=== PATIENT | male | born 1950 | race Caucasian/White ===

== ENCOUNTER 2019-03-07 20:11 | Emergency (ER) | payer OTHER ==
--- NOTE | 2019-03-07 20:58 | ER ---
Nurse's Notes [facility] Name: Santos Storm Age: 68 yrs Sex: Male : 1950 Arrival Date: 03/07/2019 Time: 20:16 Bed 26 Private MD: Elliot Recinos Diagnosis: Laceration without foreign body of right hand-thumb Presentation: 03/07 20:22 Presenting complaint: Patient states: he cut his R thumb with a knife about 20 mins aa1 PL[employer]. Transition of care: patient was not received from another setting of care. Onset of symptoms was March 07, 2019. Risk Assessment: Do you want to hurt yourself or someone else? Patient reports no desire to harm self or others. Initial Sepsis Screen: Does the patient meet any 2 criteria? No. Patient's initial sepsis screen is negative. Does the patient have a suspected source of infection? Yes: Skin breakdown/wound. Care prior to arrival: None. 20:22 Method Of Arrival: Ambulatory aa1 20:22 Acuity: MOLLY 4 aa1 Triage Assessment: 20:24 General: Appears in no apparent distress. comfortable, Behavior is calm, cooperative, aa1 appropriate for age. Historical: - Allergies: 20:24 Sulfa (Sulfonamide Antibiotics); aa1 - Home Meds: 20:24 None [Active]; aa1 - PMHx: 20:24 None; aa1 - PSHx: 20:24 Tonsillectomy; Tibia Sx; aa1 - Immunization history:: Last tetanus immunization: < 5 years ago. - Social history:: Smoking status: Patient/guardian denies using tobacco. - Ebola Screening: : No symptoms or risks identified at this time. - Family history:: not pertinent. Screenin:53 Abuse screen: Denies threats or abuse. Denies injuries from another. Nutritional aj screening: No deficits noted. Tuberculosis screening: No symptoms or risk factors identified. Fall Risk None identified. Assessment: 20:53 General: Appears in no apparent distress. comfortable, Behavior is calm, cooperative, aj appropriate for age. Pain: Complains of pain in right hand and right thumbnail. Neuro: Level of Consciousness is awake, alert, obeys commands, Oriented to person, place, time, situation, Appropriate for age. Respiratory: Airway is patent Respiratory effort is even, unlabored, Respiratory pattern is regular, symmetrical. Musculoskeletal: Circulation, motion, and sensation intact. Swelling absent. Injury Description: Laceration sustained to palmar aspect of distal phalanx of right thumb is clean, 0.5 to 2.5 cm long, was sustained 30-60 minutes ago. no active bleeding noted at this time. Vital Signs: 20:24 BP 140 / 71; Pulse 65; Resp 18; Temp 97.8; Pulse Ox 96% on R/A; Weight 81.65 kg; Height aa1 5 ft. 11 in. (180.34 cm); Pain 1/; 20:24 Body Mass Index 25.10 (81.65 kg, 180.34 cm) aa1 ED Course: 20:16 Patient arrived in ED. am2 20:16 Elliot Recinos MD is Private Physician. am2 20:23 Triage completed. aa1 20:24 Arm band placed on right wrist. Patient placed in an exam room, on a stretcher. aa1 20:47 Darya Wheatley RN is Primary Nurse. aj 20:47 Edmond Angeles MD is Attending Physician. earl 20:53 Patient has correct armband on for positive identification. aj 20:53 Patient did not have IV access during this emergency room visit. aj 20:55 Elliot Recinos MD is Referral Physician. earl 21:17 Assist provider with laceration repair on palmar aspect of distal phalanx of right aj thumb that was 2.5 cm. or less using sutures. Set up tray. Performed by Edmond Angeles MD Dressed with 4X4s, Lenore, Neosporin, Patient tolerated well. Administered Medications: 21:09 Drug: Lidocaine (1 %) 5 ml Volume: 5 ml; Route: Infiltration; aj 21:09 Drug: KeFLEX 500 mg Route: PO; aj 21:18 Follow up: Response: No adverse reaction aj Outcome: 20:57 Discharge ordered by . earl 21:17 Discharged to home ambulatory. aj 21:17 Condition: good 21:17 Discharge instructions given to patient, family, Instructed on discharge instructions, follow up and referral plans. medication usage, wound care, Demonstrated understanding of instructions, follow-up care, medications, Prescriptions given X 2. 21:19 Patient left the ED. aj Signatures: Kathie Pinto RN RN aa Darya Wheatley RN RN aj Anderson, Corey, MD MD cha Martinez, Darya amTamara
--- NOTE | 2019-03-07 20:58 | EDPHYS ---
Physician Documentation [facility] Name: Santos Storm Age: 68 yrs Sex: Male : 1950 Arrival Date: 03/07/2019 Time: 20:16 Bed 26 Private MD: Elliot Recinos ED Physician Edmond Angeles HPI: 03/07 20:51 This 68 yrs old Male presents to ER via Ambulatory with complaints of Finger earl Injury. 20:51 Trauma demographics: County: The injury occurred in [place]. Mechanism of injury: cut. earl Associated injuries: The patient sustained laceration, .25 cm(s). Historical: - Allergies: 20:24 Sulfa (Sulfonamide Antibiotics); aa1 - Home Meds: 20:24 None [Active]; aa1 - PMHx: 20:24 None; aa1 - PSHx: 20:24 Tonsillectomy; Tibia Sx; aa1 - Immunization history:: Last tetanus immunization: < 5 years ago. - Social history:: Smoking status: Patient/guardian denies using tobacco. - Ebola Screening: : No symptoms or risks identified at this time. - Family history:: not pertinent. ROS: 20:51 Constitutional: Negative for fever, chills, and weight loss, Eyes: Negative for injury, earl pain, redness, and discharge, ENT: Negative for injury, pain, and discharge, Neck: Negative for injury, pain, and swelling, Cardiovascular: Negative for chest pain, palpitations, and edema, Respiratory: Negative for shortness of breath, cough, wheezing, and pleuritic chest pain, Abdomen/GI: Negative for abdominal pain, nausea, vomiting, diarrhea, and constipation, Back: Negative for injury and pain, : Negative for injury, bleeding, discharge, and swelling, Skin: Negative for injury, rash, and discoloration, Neuro: Negative for headache, weakness, numbness, tingling, and seizure, Psych: Negative for depression, anxiety, suicide ideation, homicidal ideation, and hallucinations, Allergy/Immunology: Negative for hives, rash, and allergies, Endocrine: Negative for neck swelling, polydipsia, polyuria, polyphagia, and marked weight changes, Hematologic/Lymphatic: Negative for swollen nodes, abnormal bleeding, and unusual bruising. 20:51 MS/extremity: Positive for decreased range of motion, pain, of the palmar aspect of distal phalanx of right thumb and right thumbnail. Exam: 20:51 Constitutional: This is a well developed, well nourished patient who is awake, alert, earl and in no acute distress. Head/Face: Normocephalic, atraumatic. Eyes: Pupils equal round and reactive to light, extra-ocular motions intact. Lids and lashes normal. Conjunctiva and sclera are non-icteric and not injected. Cornea within normal limits. Periorbital areas with no swelling, redness, or edema. ENT: Nares patent. No nasal discharge, no septal abnormalities noted. Tympanic membranes are normal and external auditory canals are clear. Oropharynx with no redness, swelling, or masses, exudates, or evidence of obstruction, uvula midline. Mucous membranes moist. Neck: Trachea midline, no thyromegaly or masses palpated, and no cervical lymphadenopathy. Supple, full range of motion without nuchal rigidity, or vertebral point tenderness. No Meningismus. Chest/axilla: Normal chest wall appearance and motion. Nontender with no deformity. No lesions are appreciated. Cardiovascular: Regular rate and rhythm with a normal S1 and S2. No gallops, murmurs, or rubs. Normal PMI, no JVD. No pulse deficits. Respiratory: Lungs have equal breath sounds bilaterally, clear to auscultation and percussion. No rales, rhonchi or wheezes noted. No increased work of breathing, no retractions or nasal flaring. Abdomen/GI: Soft, non-tender, with normal bowel sounds. No distension or tympany. No guarding or rebound. No evidence of tenderness throughout. Back: No spinal tenderness. No costovertebral tenderness. Full range of motion. Male : Normal genitalia with no discharge or lesions. Skin: Warm, dry with normal turgor. Normal color with no rashes, no lesions, and no evidence of cellulitis. Neuro: Awake and alert, GCS 15, oriented to person, place, time, and situation. Cranial nerves II-XII grossly intact. Motor strength 5/5 in all extremities. Sensory grossly intact. Cerebellar exam normal. Normal gait. Psych: Awake, alert, with orientation to person, place and time. Behavior, mood, and affect are within normal limits. 20:51 Musculoskeletal/extremity: Extremities: noted in the palmar aspect of distal phalanx of right thumb and right thumbnail: laceration, pain. Vital Signs: 20:24 BP 140 / 71; Pulse 65; Resp 18; Temp 97.8; Pulse Ox 96% on R/A; Weight 81.65 kg; Height aa1 5 ft. 11 in. (180.34 cm); Pain 1/10; 20:24 Body Mass Index 25.10 (81.65 kg, 180.34 cm) aa1 Laceration: 20:54 Wound Repair of .2cm ( 0.1in ) subcutaneous laceration to palmar aspect of distal earl phalanx of right thumb. Irregularly shaped.. Distal neuro/vascular/tendon intact. Anesthesia: Local anesthetic administered with 2 mls of 1% lidocaine. Wound prep: Simple cleansing with betadine by nj. Skin closed with 1 1-0 Prolene using simple sutures and sterile technique. Dressed with Neosporin. Patient tolerated well. MDM: 20:47 Patient medically screened. [facility] 20:54 Data reviewed: vital signs, nurses notes. [facility] 03/07 20:51 Order name: Dressing - Wound; Complete Time: 20:53 [facility] 03/07 20:51 Order name: Gloves, Sterile; Complete Time: 20:53 [facility] 03/07 20:51 Order name: Setup Suture Tray; Complete Time: 20:53 [facility] Administered Medications: 21:09 Drug: Lidocaine (1 %) 5 ml Volume: 5 ml; Route: Infiltration; aj 21:09 Drug: KeFLEX 500 mg Route: PO; aj 21:18 Follow up: Response: No adverse reaction Disposition: 03/07/19 20:57 Discharged to Home. Impression: Laceration without foreign body of right hand - thumb. - Condition is Stable. - Discharge Instructions: Laceration Care, Adult, Laceration Care, Adult, [id number]. - Prescriptions for Keflex 500 mg Oral Capsule - take 1 capsule by ORAL route every 6 hours for 5 days; 20 capsule. Tylenol- Codeine #3 300-30 mg Oral Tablet - take 2 tablets by ORAL route every 6 hours As needed; 20 tablet. - Medication Reconciliation Form, Thank You Letter, Antibiotic Education, Prescription Opioid Use form. - Follow up: Elliot Recinos MD; When: 1 week; Reason: Recheck today's complaints, Continuance of care, Re-evaluation by your physician. - Problem is new. - Symptoms have improved. Signatures: Kathie Pinto RN RN aa1 Darya Wheatley RN Edmond Landeros MD MD cha Corrections: (The following items were deleted from the chart) 21:19 20:57 03/07/2019 20:57 Discharged to Home. Impression: Laceration without foreign body aj of right hand - thumb. Condition is Stable. Forms are Medication Reconciliation Form, Thank You Letter, Antibiotic Education, Prescription Opioid Use. Follow up: Elliot Recinos; When: 1 week; Reason: Recheck today's complaints, Continuance of care, Re-evaluation by your physician. Problem is new. Symptoms have improved. earl
[2019-03-07] MEDS ORDERED: LIDOCAINE 1% 20 ML MDV ONE (21:06)
[2019-03-07] MEDS ORDERED: CEPHALEXIN 250 MG CAP ONE (21:22)
== END 2019-03-07 21:19 | disposition home or self-care (01) ==
LOC: ER 20:11
PROC: 0JQJ0ZZ Repair Right Hand Subcutaneous Tissue and Fascia, Open Approach (ICD-10-PCS; principal; 2019-03-07)
DX: S61.011A Laceration without foreign body of right thumb without damage to nail, initial encounter (principal); W45.8XXA Other foreign body or object entering through skin, initial encounter; Y93.9 Activity, unspecified; Y92.89 Other specified places as the place of occurrence of the external cause; Z88.2 Allergy status to sulfonamides
CPT/HCPCS: 99283

== ENCOUNTER 2019-03-16 08:39 | Emergency (ER) | payer OTHER ==
--- NOTE | 2019-03-16 09:02 | ER ---
Nurse's Notes [facility] Name: Santos Storm Age: 68 yrs Sex: Male : 1950 Arrival Date: 03/16/2019 Time: 08:41 Bed 16 Private MD: Diagnosis: Encounter for removal of sutures Presentation: 03/16 08:55 Presenting complaint: Patient states: needs 3 sutures taken out of right thumb, placed iw 8 days ago. Transition of care: patient was not received from another setting of care. Onset of symptoms was March 08, 2019. Risk Assessment: Do you want to hurt yourself or someone else? Patient reports no desire to harm self or others. Initial Sepsis Screen: Does the patient meet any 2 criteria? No. Patient's initial sepsis screen is negative. Does the patient have a suspected source of infection? No. Patient's initial sepsis screen is negative. Care prior to arrival: None. 08:55 Method Of Arrival: Ambulatory iw 08:55 Acuity: MOLLY 4 iw Historical: - Allergies: 08:59 Sulfa (Sulfonamide Antibiotics); iw 08:59 diclofenac sodium; iw - PSHx: 08:59 Tonsillectomy; Tibia Sx; iw - Immunization history:: Last tetanus immunization: up to date. - Social history:: Smoking status: Patient/guardian denies using tobacco. - Ebola Screening: : Patient negative for fever greater than or equal to 101.5 degrees Fahrenheit, and additional compatible Ebola Virus Disease symptoms Patient denies exposure to infectious person Patient denies travel to an Ebola-affected area in the 21 days before illness onset No symptoms or risks identified at this time. Screenin:05 Abuse screen: Denies threats or abuse. Denies injuries from another. Nutritional ph screening: No deficits noted. Tuberculosis screening: No symptoms or risk factors identified. Fall Risk None identified. Assessment: 09:05 General: Appears in no apparent distress. comfortable, slender, well groomed, Behavior ph is calm, cooperative, appropriate for age, Denies fever. Pain: Denies pain. Neuro: Level of Consciousness is awake, alert, obeys commands, Oriented to person, place, time, situation. Cardiovascular: Capillary refill < 3 seconds in bilateral fingers Patient's skin is warm and dry. Respiratory: No deficits noted. Derm: Skin is healthy with good turgor, Skin is pink, warm \T\ dry. Wound noted palmar aspect of distal phalanx of right thumb Other: sutures in place, wound appears to be healing well w/ no kimmy of redness or infection, sutures x 3 removed. Musculoskeletal: Circulation, motion, and sensation intact. Range of motion: intact in all extremities. Vital Signs: 08:57 BP 126 / 64; Pulse 74; Resp 16; Pulse Ox 100% on R/A; Weight 81.65 kg; Height 5 ft. 11 iw in. (180.34 cm); Pain 0/10; 08:57 Body Mass Index 25.10 (81.65 kg, 180.34 cm) iw ED Course: 08:41 Patient arrived in ED. as 08:48 Mary Acevedo, RN is Primary Nurse. ph 08:51 Alesha Ariza FNP-C is PHCP. snw 08:51 Abdullahi De Guzman MD is Attending Physician. snw 08:57 Triage completed. iw 08:57 Arm band placed on. iw 09:05 Patient has correct armband on for positive identification. Bed in low position. Call ph light in reach. 09:05 No provider procedures requiring assistance completed. Patient did not have IV access ph during this emergency room visit. Removal of Removed sutures from palmar aspect of distal phalanx of right thumb Suture site is well healed Patient tolerated well. Administered Medications: No medications were administered Outcome: 09:02 Discharge ordered by . snw 09:11 Patient left the ED. ph 09:11 Discharged to home ambulatory. ph 09:11 Condition: good 09:11 Discharge instructions given to patient. Signatures: Alesha Ariza FNP-C FNP-Belkis Sanz Irene, RN RN iw Mary Acevedo RN RN ph
--- NOTE | 2019-03-16 09:02 | EDPHYS ---
Physician Documentation [facility] Name: Santos Storm Age: 68 yrs Sex: Male : 1950 Arrival Date: 03/16/2019 Time: 08:41 Bed 16 Private MD: ED Physician Abdullahi De Guzman HPI: 03/16 08:55 This 68 yrs old Male presents to ER via Unassigned with complaints of Suture snw Removal. 08:55 The patient has sutures on the palmar aspect of distal phalanx of right thumb. Previous snw treatment: Treatment type: The patient's original treatment included sutures. Sutures/rex progress: The patient has no c/o's. The wound is well-healing with no redness, swelling, discharge, or dehiscence reported. The patient has not experienced similar symptoms in the past. sutures placed to right thumb. no s/s infection. Historical: - Allergies: 08:59 Sulfa (Sulfonamide Antibiotics); iw 08:59 diclofenac sodium; iw - PSHx: 08:59 Tonsillectomy; Tibia Sx; iw - Immunization history:: Last tetanus immunization: up to date. - Social history:: Smoking status: Patient/guardian denies using tobacco. - Ebola Screening: : Patient negative for fever greater than or equal to 101.5 degrees Fahrenheit, and additional compatible Ebola Virus Disease symptoms Patient denies exposure to infectious person Patient denies travel to an Ebola-affected area in the 21 days before illness onset No symptoms or risks identified at this time. ROS: 08:55 Constitutional: Negative for fever, chills, and weight loss, Eyes: Negative for injury, snw pain, redness, and discharge, ENT: Negative for injury, pain, and discharge, Neck: Negative for injury, pain, and swelling, Cardiovascular: Negative for chest pain, palpitations, and edema, Respiratory: Negative for shortness of breath, cough, wheezing, and pleuritic chest pain, Abdomen/GI: Negative for abdominal pain, nausea, vomiting, diarrhea, and constipation, Back: Negative for injury and pain, : Negative for injury, bleeding, discharge, and swelling, MS/Extremity: Negative for injury and deformity, Neuro: Negative for headache, weakness, numbness, tingling, and seizure, Psych: Negative for depression, anxiety, suicide ideation, homicidal ideation, and hallucinations. 08:55 Skin: Positive for here for suture removal from right thumb, no complaints. Exam: 08:55 Constitutional: This is a well developed, well nourished patient who is awake, alert, snw and in no acute distress. Head/Face: Normocephalic, atraumatic. Eyes: Pupils equal round and reactive to light, extra-ocular motions intact. Lids and lashes normal. Conjunctiva and sclera are non-icteric and not injected. Cornea within normal limits. Periorbital areas with no swelling, redness, or edema. Respiratory: Lungs have equal breath sounds bilaterally, clear to auscultation and percussion. No rales, rhonchi or wheezes noted. No increased work of breathing, no retractions or nasal flaring. Skin: Warm, dry with normal turgor. Normal color with no rashes, no lesions, and no evidence of cellulitis. Right thumb with 3 sutures over healing laceration to tip. MS/ Extremity: Pulses equal, no cyanosis. Neurovascular intact. Full, normal range of motion. Neuro: Awake and alert, GCS 15, oriented to person, place, time, and situation. Cranial nerves II-XII grossly intact. Motor strength 5/5 in all extremities. Sensory grossly intact. Cerebellar exam normal. Normal gait. Psych: Awake, alert, with orientation to person, place and time. Behavior, mood, and affect are within normal limits. Vital Signs: 08:57 BP 126 / 64; Pulse 74; Resp 16; Pulse Ox 100% on R/A; Weight 81.65 kg; Height 5 ft. 11 iw in. (180.34 cm); Pain 0/10; 08:57 Body Mass Index 25.10 (81.65 kg, 180.34 cm) iw MDM: 08:55 Patient medically screened. snw 09:03 Data reviewed: vital signs, nurses notes. Counseling: I had a detailed discussion with snw the patient and/or guardian regarding: the historical points, exam findings, and any diagnostic results supporting the discharge/admit diagnosis, the need for outpatient follow up, for definitive care, to return to the emergency department if symptoms worsen or persist or if there are any questions or concerns that arise at home. Response to treatment: the patient's symptoms have markedly improved after treatment. Special discussion: Based on the history and exam findings, there is no indication for further emergent testing or inpatient evaluation. I discussed with the patient/guardian the need to see the primary care provider for further evaluation of the symptoms. 03/16 09:04 Order name: Jose. Order: please remove 3 sutures; Complete Time: 09:10 snw Administered Medications: No medications were administered Disposition: 10:24 Co-signature as Attending Physician, Abdullahi De Guzman MD I agree with the assessment and kdr plan of care. Disposition: 03/16/19 09:02 Discharged to Home. Impression: Encounter for removal of sutures. - Condition is Stable. - Discharge Instructions: Suture Removal, Care After, Incision Care, Adult. - Medication Reconciliation Form, Thank You Letter, Antibiotic Education, Prescription Opioid Use form. - Follow up: Private Physician; When: 2 - 3 days; Reason: Recheck today's complaints, Continuance of care, Re-evaluation by your physician. Follow up: Emergency Department; When: As needed; Reason: Worsening of condition. Signatures: Abdullahi De Guzman MD MD [facility] Alesha Ariza, QUALITY CONTROL COORDINATOR-C QUALITY CONTROL COORDINATOR-Csnw Nidhi Grace, CAYDEN RN iw Mary Acevedo RN RN ph Corrections: (The following items were deleted from the chart) : 09:02 03/16/2019 09:02 Discharged to Home. Impression: Encounter for removal of ph sutures. Condition is Stable. Forms are Medication Reconciliation Form, Thank You Letter, Antibiotic Education, Prescription Opioid Use. Follow up: Private Physician; When: 2 - 3 days; Reason: Recheck today's complaints, Continuance of care, Re-evaluation by your physician. Follow up: Emergency Department; When: As needed; Reason: Worsening of condition. snw
== END 2019-03-16 09:11 | disposition home or self-care (01) ==
LOC: ER 08:39
DX: Z48.02 Encounter for removal of sutures (principal)
CPT/HCPCS: 99281